=== PATIENT | male | born 1980 | race Caucasian/White ===

== ENCOUNTER 2021-05-06 21:53 | Inpatient (IN) | payer SELFPAY ==
[~2021-05-06] VITALS: Ht 175.3 cm; Wt 95.3 kg
[2021-05-06] MEDS ORDERED: LORazepam 2 MG/ML VIAL IM ONE (21:55)
[2021-05-06] MEDS ORDERED: diphenhydrAMINE 50 MG/ML VIAL IM ONE (21:55)
[2021-05-06] MEDS ORDERED: HALOPERIDOL IM 5 MG/ML VIAL IM ONE (21:55)
[2021-05-06] MEDS ORDERED: diphenhydrAMINE 50 MG/ML VIAL ONE (21:58)
[2021-05-06] MEDS ORDERED: LORazepam 2 MG/ML VIAL ONE ×2 (21:59→22:16)
[2021-05-06] MEDS ORDERED: HALOPERIDOL IM 5 MG/ML VIAL ONE (21:59)
[2021-05-06 22:07] VITALS: BP 153/100
--- NOTE | 2021-05-06 22:10 | NUR ---
BIBA BY PD DUE TO FAMILY CALLING TO DANGER TO SELF, OTHERS, AND COMBATIVE. PATIENT WAS HURTING HIMSELF BY HITTING HIS HEAD. PATIENT ARRIVED COMBATIVE, AGRESSIVE, HITTING, AND SPEAKING INCOMPREHENSIVELY. PATIENT WAS TACHYCARDIC WITH HR@ 150s. PATIENT CURRENTLY NOT IN TOUCH WITH REALITY AND HAS NOT BEEN TAKING SCHIZOPHRENIA MEDICATIONS. HX: SCHIZOPHRENIA UNKOWN ALLERGIES
--- NOTE | 2021-05-06 22:40 | NUR ---
BIBA TO ER BED 4
--- NOTE | 2021-05-06 23:48 | NUR ---
assisted patient in urinating into a urinal-- urine collected and sent to lab
[2021-05-06 23:54] LABS: HEMATOCRIT 39.2 % (36-52); HEMOGLOBIN 13.4 g/dL (12.0-18.0); MEAN CORPUSCULAR HEMOGLOBIN 30 pg (27-31); MEAN CORPUSCULAR HGB CONC 34 g/dL (33-37); MEAN CORPUSCULAR VOLUME 88.1 fL (80-94); PLATELET COUNT (AUTO) 150 K/uL (140-450); RED BLOOD CELL COUNT(AUTO) 4.44 MIL/uL (4.20-6.10); WHITE BLOOD COUNT (AUTO) 19.5 K/uL (4.8-10.8)
--- NOTE | 2021-05-07 | NUR ---
please see observation record for further information
[2021-05-07 00:08] LABS: ALBUMIN 4.1 g/dL (3.4-5.0); ANION GAP 18.8 (8-16); ASPARTATE AMINOTRANSFERASE 61 U/L (15-37); CARBON DIOXIDE 18.1 mmol/L (21-32); CHLORIDE 102 mmol/L (98-107); CREATININE 1.4 mg/dL (0.6-1.3); GFR ARICAN-AMERICAN 71 mL/min (>90); GLUCOSE 149 mg/dL (74-106); POTASSIUM 3.9 mmol/L (3.5-5.1); SODIUM SERUM 135 mmol/L (136-145); TOTAL BILIRUBIN 0.6 mg/dL (0.0-1.0); UREA NITROGEN, BLOOD 12 mg/dL (7-18)
[2021-05-07 00:11] LABS: LYMPHOCYTES % (MANUAL) 4 % (20-46); MONOCYTES % (MANUAL) 8 % (5-12)
[2021-05-07 00:15] LABS: SALICYLATE < 2.8 mg/dL (2.8-20.0)
[2021-05-07] MEDS ORDERED: VANCOMYCIN 1,500 MG in DEXTROSE 5% 250 ML IV ONE ×2 (02:15→05:15)
[2021-05-07] MEDS ORDERED: CEFEPIME 2,000 MG in DEXTROSE 5% 100 ML IV ONE ×2 (02:15→05:20)
[2021-05-07] MEDS ORDERED: NACL 0.9% 1,000 ML IV SCH (02:15)
[2021-05-07 03:11] LABS: BILIRUBIN,URINE NEGATIVE (NEGATIVE); BLOOD, URINE 3+ (NEGATIVE); COLOR,URINE YELLOW (YELLOW); LEUKOCYTE ESTERASE ,URINE NEGATIVE (NEGATIVE); NITRITE, URINE NEGATIVE (NEGATIVE); UGLUCOSE NEGATIVE (NEGATIVE)
[2021-05-07 03:13] LABS: APPEARANCE,URINE SLIGHTLY HAZY (CLEAR)
[2021-05-07 03:14] LABS: RBC,URINE 0-5 /HPF (0-5); WBC,URINE 0-5 /HPF (0-5)
[2021-05-07 03:25] LABS: BARBITURATE, URINE NEGATIVE ng/ml (NEG <=200); BENZODIAZEPINE, URINE POSITIVE ng/mL (NEG <=200); CANNABINOID, URINE NEGATIVE ng/mL (NEG <=50); COCAINE, URINE NEGATIVE ng/mL (NEG <=300); OPIATE, URINE NEGATIVE ng/mL (NEG <=2000); PHENCYCLIDINE SCREEN,URINE NEGATIVE ng/mL (NEG <=25)
[2021-05-07] MEDS ORDERED: NACL 0.9% 1,000 ML IV ONE (05:20)
[2021-05-07] MEDS ORDERED: CEFEPIME 2,000 MG VIAL IV ONE (05:24)
[2021-05-07] MEDS ORDERED: VANCOMYCIN 500 MG VIAL ONE (07:04)
--- NOTE | 2021-05-07 07:15 | NUR ---
Pt report given to LIANA Rousseau. Transfer of care at this time.
--- NOTE | 2021-05-07 07:16 | NUR ---
RECEIVED REPORT FROM LIANA VICTOR FOR CONTINUOUS OF CARE.
[2021-05-07] MEDS ORDERED: POTASSIUM CHLORIDE 40 MEQ, LIDOCAINE MPF 1% 25 MG in NACL 0.9% 250 ML IV PRN (10:25)
[2021-05-07] MEDS ORDERED: MAG SULF 2000 MG/WATER PREMIX 50 ML IV PRN (10:25)
[2021-05-07] MEDS ORDERED: HYDROcodone/APAP 5/325 MG 1 TAB TAB PO PRN (10:25)
[2021-05-07] MEDS ORDERED: DOCUSATE SODIUM 100 MG GELCAP PO PRN (10:25)
[2021-05-07] MEDS ORDERED: SODIUM PHOS / POTASSIUM PHOS 1 PKT PDR PO PRN (10:25)
[2021-05-07] MEDS ORDERED: ACETAMINOPHEN 325 MG TAB PO PRN (10:25)
[2021-05-07] MEDS ORDERED: MORPHINE SULFATE 2 MG/ML SYR IVP PRN (10:25)
[2021-05-07] MEDS: NACL 0.9% 1,000 ML IV SCH (10:25)
[2021-05-07] MEDS ORDERED: ONDANSETRON 4 MG/2 ML VIAL IM/IVP PRN (10:25)
[2021-05-07 10:44] LABS: MAGNESIUM 2.9 mg/dL (1.8-2.4); PHOSPHORUS 1.5 mg/dL (2.5-4.9)
[2021-05-07] MEDS ORDERED: CEFEPIME 2,000 MG in DEXTROSE 5% 100 ML IV SCH (13:00)
--- NOTE | 2021-05-07 16:53 | NUR ---
Received report from LIANA Rousseau. Transfer of care at this time.
--- NOTE | 2021-05-07 16:53 | NUR ---
ENDORSED TO LIANA PEREZ FOR CONTINUOUS OF CARE.
[2021-05-07 16:54] LABS: BASOPHILS # (AUTO) 0.1 K/uL (0.00-0.22); EOSINOPHILS % (AUTO) 0.3 % (0.0-4.0); HEMATOCRIT 39.6 % (36-52); HEMOGLOBIN 13.7 g/dL (12.0-18.0); LYMPHOCYTES # (AUTO) 1.2 K/uL (2.0-11.5); LYMPHOCYTES % (AUTO) 12.1 % (20.5-51.1); MEAN CORPUSCULAR HEMOGLOBIN 31 pg (27-31); MEAN CORPUSCULAR HGB CONC 35 g/dL (33-37); MONOCYTES # (AUTO) 1.2 K/uL (0.8-1.0); NEUTROPHILS # (AUTO) 7.5 K/uL (1.8-7.7); NEUTROPHILS % (AUTO) 74.6 % (42.2-75.2); PLATELET COUNT (AUTO) 124 K/uL (140-450); RED BLOOD CELL COUNT(AUTO) 4.45 MIL/uL (4.20-6.10); RED CELL DISTRIBUTION WIDTH 13.4 % (11.6-13.7); WHITE BLOOD COUNT (AUTO) 10.1 K/uL (4.8-10.8)
--- NOTE | 2021-05-07 16:55 | NUR ---
Received report from LIANA Rousseau. Transfer of care at this time.
--- NOTE | 2021-05-07 17:45 | NUR ---
Patient appears to be resting comfortably in bed. Vital Signs within normal limits. Respirations even and unlabored.
--- NOTE | 2021-05-07 18:49 | NUR ---
SPOKE WITH DR. NAJERA FOR TELEPSYCH RECOMMENDATION.
--- NOTE | 2021-05-07 18:55 | NUR ---
PT BEING TELEPSYCHED AT THIS TIME.
--- NOTE | 2021-05-07 19:18 | NUR ---
SPOKE WITH DR. NAJERA STATES PT IS CALM BUT HAS POOR INSIGHT AND JUDGEMENT OVER SITUATION OF WHAT OCCURED PRIOR TO ARRIVAL AND LEAD TO 5150 [address]. WHEN ASKED WHY HE BANGED HIS HEAD ON THE WALL HE STATED, "I HAD TO LEAVE MY TRA FOR THE DEVIL". PER DR. NAJERA RECOMMENDS PT TO BE PLACED AND FOR RISPERIDONE XL 150MG PO AM AND 2MG PO HS.
--- NOTE | 2021-05-07 21:02 | NUR ---
GAVE REPORT TO LIANA FARMER. TRANSFER OF CARE AT THIS TIME.
--- NOTE | 2021-05-07 21:11 | NUR ---
GAVE REPORT TO LIANA VICTOR. TRANSFER OF CARE AT THIS TIME.
--- NOTE | 2021-05-07 21:12 | NUR ---
Received report from LIANA Sherwood for continuity of care.
--- NOTE | 2021-05-07 22:00 | NUR ---
see patient observation sheet for updates on patient
[2021-05-07] MEDS: ZOLPIDEM 5 MG TAB PO PRN (22:20)
[2021-05-08] MEDS: NACL 0.9% 1,000 ML IV SCH ×2 (03:05→23:43)
--- NOTE | 2021-05-08 07:11 | NUR ---
Pt report given to LIANA Mills. Transfer of care at this time.
--- NOTE | 2021-05-08 07:14 | NUR ---
DC meds for previous nurse.
[2021-05-08] MEDS ORDERED: risperiDONE 1 MG TAB PO SCH (09:00)
[2021-05-08] MEDS: PANTOPRAZOLE 40 MG TABEC PO SCH (09:03)
[2021-05-08] MEDS: risperiDONE 1 MG TAB PO SCH ×2 (09:04→21:18)
--- NOTE | 2021-05-08 09:06 | NUR ---
PATIENT HAS BEEN SCREENED AND CATEGORIZED LOW NUTRITION RISK. PATIENT WILL BE SEEN WITHIN 7 DAYS OF ADMISSION. 05/13/[address]
[2021-05-08 10:05] LABS: BASOPHILS # (AUTO) 0.1 K/uL (0.00-0.22); BASOPHILS % (AUTO) 0.9 % (0.0-2.0); EOSINOPHILS # (AUTO) 0.1 K/uL (0-0.4); EOSINOPHILS % (AUTO) 1.3 % (0.0-4.0); HEMATOCRIT 40.1 % (36-52); HEMOGLOBIN 13.7 g/dL (12.0-18.0); LYMPHOCYTES # (AUTO) 1.2 K/uL (2.0-11.5); LYMPHOCYTES % (AUTO) 14.8 % (20.5-51.1); MEAN CORPUSCULAR HEMOGLOBIN 31 pg (27-31); MEAN CORPUSCULAR HGB CONC 34 g/dL (33-37); MEAN CORPUSCULAR VOLUME 89.7 fL (80-94); MONOCYTES # (AUTO) 0.7 K/uL (0.8-1.0); MONOCYTES % (AUTO) 8.5 % (1.7-9.3); NEUTROPHILS # (AUTO) 5.9 K/uL (1.8-7.7); NEUTROPHILS % (AUTO) 74.5 % (42.2-75.2); PLATELET COUNT (AUTO) 121 K/uL (140-450); RED BLOOD CELL COUNT(AUTO) 4.47 MIL/uL (4.20-6.10); RED CELL DISTRIBUTION WIDTH 13.4 % (11.6-13.7); WHITE BLOOD COUNT (AUTO) 7.9 K/uL (4.8-10.8)
[2021-05-08 10:22] LABS: ANION GAP 14.4 (8-16); CARBON DIOXIDE 23.2 mmol/L (21-32); CREATININE 0.9 mg/dL (0.6-1.3); POTASSIUM 3.6 mmol/L (3.5-5.1)
--- NOTE | 2021-05-08 12:44 | NUR ---
Patient appears to be resting comfortably in bed. Vital Signs within normal limits. Respirations even and unlabored.
--- NOTE | 2021-05-08 19:00 | NUR ---
received pt from Lina GAINES from day shift. pt currently a/o x 4, gcs 15. able tomove extremities. denies SI/HI/AH at this time. pt able to make conversations with flat affect. openly discusses concerns with me. appropriate behavior at this time. continuous monitoring in place.
[2021-05-08] MEDS: ZOLPIDEM 5 MG TAB PO PRN (21:19)
--- NOTE | 2021-05-08 22:00 | NUR ---
pt remains in bed asleep. 1:1 sitter at bedside. NAD at this time.
--- NOTE | 2021-05-09 00:29 | NUR ---
NAD. remains asleep. visible chest rise and fall.
--- NOTE | 2021-05-09 08:00 | NUR ---
Pt awake and alert. Pt ambulated to restroom
[2021-05-09] MEDS ORDERED: CRUSHER, PILL MC ONE (08:16)
[2021-05-09] MEDS: PANTOPRAZOLE 40 MG TABEC PO SCH (08:27)
[2021-05-09] MEDS: risperiDONE 1 MG TAB PO SCH ×2 (08:27→20:26)
--- NOTE | 2021-05-09 08:27 | NUR ---
Went to nutrition to ask about pt breakfast tray. Awaiting for pt breakfast at this time.
--- NOTE | 2021-05-09 08:34 | NUR ---
Pt currently eating breakfast at bedside
[2021-05-09 12:32] LABS: BASOPHILS % (AUTO) 0.5 % (0.0-2.0); EOSINOPHILS # (AUTO) 0.1 K/uL (0-0.4); EOSINOPHILS % (AUTO) 2.4 % (0.0-4.0); HEMATOCRIT 37.7 % (36-52); HEMOGLOBIN 12.8 g/dL (12.0-18.0); LYMPHOCYTES # (AUTO) 1.1 K/uL (2.0-11.5); LYMPHOCYTES % (AUTO) 19.3 % (20.5-51.1); MEAN CORPUSCULAR HEMOGLOBIN 31 pg (27-31); MEAN CORPUSCULAR HGB CONC 34 g/dL (33-37); MONOCYTES # (AUTO) 0.8 K/uL (0.8-1.0); MONOCYTES % (AUTO) 13.4 % (1.7-9.3); NEUTROPHILS # (AUTO) 3.8 K/uL (1.8-7.7); NEUTROPHILS % (AUTO) 64.4 % (42.2-75.2); PLATELET COUNT (AUTO) 128 K/uL (140-450); RED BLOOD CELL COUNT(AUTO) 4.19 MIL/uL (4.20-6.10); RED CELL DISTRIBUTION WIDTH 12.8 % (11.6-13.7); WHITE BLOOD COUNT (AUTO) 5.9 K/uL (4.8-10.8)
--- NOTE | 2021-05-09 14:00 | NUR ---
Pt resting in bed comfortably at this time.
--- NOTE | 2021-05-09 16:23 | NUR ---
Pt sister called requesting to speak to pt. Pt speaking to sister on the phone at this time.
[2021-05-09] MEDS: NACL 0.9% 1,000 ML IV SCH (16:32)
[2021-05-09 16:42] LABS: ANION GAP 11.4 (8-16); CARBON DIOXIDE 26.5 mmol/L (21-32); CREATININE 0.8 mg/dL (0.6-1.3); POTASSIUM 3.9 mmol/L (3.5-5.1)
[2021-05-09] MEDS ORDERED: guaiFENesin 20 MG/ML UDC PO PRN (17:50)
--- NOTE | 2021-05-09 17:59 | NUR ---
Pt dinner tray at bedside. Pt eating at this time.
--- NOTE | 2021-05-09 19:48 | NUR ---
Psychiatrist evaluating pt at bedside
[2021-05-09] MEDS ORDERED: RISP0.5T3 PO ×2 (20:06)
[2021-05-09] MEDS ORDERED: RIS1 PO ×2 (21:15)
[2021-05-09 21:48] VITALS: BP 132/68
== END 2021-05-09 22:00 | disposition home or self-care (01) | DRG 871 ==
LOC: MED 21:53 → MTU 05-07 06:04 → MMU 05-07 19:31 → MTU 05-09 16:16
PROVIDERS: ADMIT Hospitalist; ATTEND Hospitalist
DX: A41.9 Sepsis, unspecified organism (principal); N17.0 Acute kidney failure with tubular necrosis; G92 Toxic encephalopathy; E87.1 Hypo-osmolality and hyponatremia; Z20.822 Contact with and (suspected) exposure to COVID-19; R65.20 Severe sepsis without septic shock; F29 Unspecified psychosis not due to a substance or known physiological condition; F20.9 Schizophrenia, unspecified; E78.00 Pure hypercholesterolemia, unspecified; F10.10 Alcohol abuse, uncomplicated; E66.9 Obesity, unspecified; E83.41 Hypermagnesemia; E83.39 Other disorders of phosphorus metabolism; K76.0 Fatty (change of) liver, not elsewhere classified; K40.90 Unilateral inguinal hernia, without obstruction or gangrene, not specified as recurrent; R73.9 Hyperglycemia, unspecified; Y90.0 Blood alcohol level of less than 20 mg/100 ml; E86.0 Dehydration; J84.10 Pulmonary fibrosis, unspecified; T43.621A Poisoning by amphetamines, accidental (unintentional), initial encounter; F15.10 Other stimulant abuse, uncomplicated; Z83.3 Family history of diabetes mellitus; Z68.31 Body mass index [BMI] 31.0-31.9, adult; Z71.41 Alcohol abuse counseling and surveillance of alcoholic; Z71.51 Drug abuse counseling and surveillance of drug abuser; Y92.89 Other specified places as the place of occurrence of the external cause; Z81.8 Family history of other mental and behavioral disorders
CPT/HCPCS: 36415; 70450; 71045; 80048; 80053; 80305; 81001; 83605; 83735; 84100; 85025; 87040; 93005; 96365; 96367; 96372; 99285; G0480; G0482; J0692; J1200; J1630; J2060; J3370; J7060; Q9967; U0003